=== PATIENT | male | born 1985 | race Hispanic/Latino ===

== ENCOUNTER 2017-06-30 11:24 | Emergency (ER) | payer OTHER ==
[~2017-06-30] VITALS: Ht 172.7 cm; Wt 84.1 kg
[2017-06-30] MEDS ORDERED: IBUP-1114 PO (11:34)
[2017-06-30] MEDS ORDERED: NAPR500T3 PO (13:51)
[2017-06-30] MEDS ORDERED: BACL10TA5 GT (13:51)
[2017-06-30 13:57] VITALS: BP 130/93
[2017-06-30] MEDS ORDERED: BACL10TA2 PO (14:06)
== END 2017-06-30 14:02 | disposition home or self-care (01) ==
LOC: M ED 11:24
DX: M54.9 Dorsalgia, unspecified (principal)